=== PATIENT | male | born 1955 | race Caucasian/White ===

== ENCOUNTER 2017-05-24 21:16 | Observation (INO) | payer BC ==
--- NOTE | 2017-05-24 21:20 | ED ---
General Adult HPI - General Stated complaint: Chest Pain Time Seen by Provider: 05/24/17 21:19 Source: RN notes reviewed, old records reviewed - History of Present Illness Initial comments: This is a 61-year-old male ER for evaluation of chest pain. Patient with history of high blood pressure high cholesterol. Now no history of smoking is strongly family history. Patient coming here today for chest pain all day. Anterior heaviness. Patient was continued chest metastatic on arthroscopic congestion or family history. - Related Data Home Medications Medication Instructions Recorded Confirmed ALPRAZolam [Xanax] 0.5 mg PO TID PRN 05/24/17 05/24/17 Aspirin EC [Ecotrin Low Dose] 81 mg PO QAM 05/24/17 05/24/17 Ergocalciferol (Vitamin D2) 50,000 unit PO WE 05/24/17 05/24/17 [Vitamin D2] HYDROcodone/APAP 7.5-325MG [[place] 1 tab PO Q6HR PRN 05/24/17 05/24/17 7.5-325] Rosuvastatin Calcium 20 mg PO QAM 05/24/17 05/24/17 Allergies Allergy/AdvReac Type Severity Reaction Status Date / Time Penicillins Allergy Rash/Hives Verified 05/24/17 21:25 Review of Systems ROS Statement: Those systems with pertinent positive or pertinent negative responses have been documented in the HPI. ROS Other: All systems not noted in ROS Statement are negative. General Exam General appearance: alert, in no apparent distress Head exam: Present: atraumatic, normocephalic, normal inspection Eye exam: Present: normal appearance, PERRL, EOMI. Absent: scleral icterus, conjunctival injection, periorbital swelling ENT exam: Present: normal exam, mucous membranes moist Neck exam: Present: normal inspection. Absent: tenderness, meningismus, lymphadenopathy Respiratory exam: Present: normal lung sounds bilaterally. Absent: respiratory distress, wheezes, rales, rhonchi, stridor Cardiovascular Exam: Present: regular rate, normal rhythm, normal heart sounds. Absent: systolic murmur, diastolic murmur, rubs, gallop, clicks GI/Abdominal exam: Present: soft, normal bowel sounds. Absent: distended, tenderness, guarding, rebound, rigid Extremities exam: Present: normal inspection, full ROM, normal capillary refill. Absent: tenderness, pedal edema, joint swelling, calf tenderness Back exam: Present: normal inspection Neurological exam: Present: alert, oriented X3, CN II-XII intact Psychiatric exam: Present: normal affect, normal mood Skin exam: Present: warm, dry, intact, normal color. Absent: rash Course Vital Signs 05/24/17 05/24/17 21:19 22:25 Temperature 98.1 F Pulse Rate 75 78 Respiratory 18 18 Rate Blood Pressure 146/93 118/89 O2 Sat by Pulse 97 98 Oximetry - Reevaluation(s) Reevaluation #1: 05/24/17 23:01 Patient remains with chest pain EKG Findings - EKG Comments: EKG Findings:: EKG shows normal sinus rhythm is 33, VT 150, QRS 90, QTC 407 Medical Decision Making - Medical Decision Making 61 [facility] ER for evaluation of chest pain, history of 5 blood pressure cholesterol, anterior chest pain and heaviness in the left lower distress. All day. No prior history of heart disease with strong family history, patient will be admitted for cardiac observation - Lab Data Result diagrams: 05/24/17 21:25 05/24/17 21:25 Lab Results 05/24/17 05/24/17 05/24/17 Range/Units 21:25 21:25 21:25 WBC 11.5 H (3.8-10.6) k/uL RBC 5.09 (4.30-5.90) m/uL Hgb 15.2 (13.0-17.5) gm/dL Hct 44.2 (39.0-53.0) % MCV 86.7 (80.0-100.0) fL MCH 29.8 (25.0-35.0) pg MCHC 34.4 (31.0-37.0) g/dL RDW 13.5 (11.5-15.5) % Plt Count 224 (150-450) k/uL Neutrophils % 79 % Lymphocytes % 12 % Monocytes % 6 % Eosinophils % 1 % Basophils % 0 % Neutrophils # 9.1 H (1.3-7.7) k/uL Lymphocytes # 1.4 (1.0-4.8) k/uL Monocytes # 0.7 (0-1.0) k/uL Eosinophils # 0.1 (0-0.7) k/uL Basophils # 0.0 (0-0.2) k/uL PT (9.0-12.0) sec INR (<1.1) APTT (22.0-30.0) sec Sodium 140 (137-145) mmol/L Potassium 4.0 (3.5-5.1) mmol/L Chloride 102 (98-107) mmol/L Carbon Dioxide 26 (22-30) mmol/L Anion Gap 12 mmol/L BUN 24 H (9-20) mg/dL Creatinine 1.08 (0.66-1.25) mg/dL Est GFR (MDRD) Af Amer >60 (>60 ml/min/1.73 sqM) Est GFR (MDRD) Non-Af >60 (>60 ml/min/1.73 sqM) Glucose 105 H (74-99) mg/dL Calcium 9.8 (8.4-10.2) mg/dL Magnesium 2.1 (1.6-2.3) mg/dL Total Bilirubin 0.9 (0.2-1.3) mg/dL AST 30 (17-59) U/L ALT 44 (21-72) U/L Alkaline Phosphatase 67 (38-126) U/L Total Creatine Kinase 216 H (55-170) U/L CK-MB (CK-2) 2.9 H* (0.0-2.4) ng/mL CK-MB (CK-2) Rel Index 1.3 Troponin I <0.012 (0.000-0.034) ng/mL Total Protein 8.0 (6.3-8.2) g/dL Albumin 4.9 (3.5-5.0) g/dL 05/24/17 Range/Units 21:25 WBC (3.8-10.6) k/uL RBC (4.30-5.90) m/uL Hgb (13.0-17.5) gm/dL Hct (39.0-53.0) % MCV (80.0-100.0) fL MCH (25.0-35.0) pg MCHC (31.0-37.0) g/dL RDW (11.5-15.5) % Plt Count (150-450) k/uL Neutrophils % % Lymphocytes % % Monocytes % % Eosinophils % % Basophils % % Neutrophils # (1.3-7.7) k/uL Lymphocytes # (1.0-4.8) k/uL Monocytes # (0-1.0) k/uL Eosinophils # (0-0.7) k/uL Basophils # (0-0.2) k/uL PT 11.1 (9.0-12.0) sec INR 1.1 (<1.1) APTT 23.9 (22.0-30.0) sec Sodium (137-145) mmol/L Potassium (3.5-5.1) mmol/L Chloride (98-107) mmol/L Carbon Dioxide (22-30) mmol/L Anion Gap mmol/L BUN (9-20) mg/dL Creatinine (0.66-1.25) mg/dL Est GFR (MDRD) Af Amer (>60 ml/min/1.73 sqM) Est GFR (MDRD) Non-Af (>60 ml/min/1.73 sqM) Glucose (74-99) mg/dL Calcium (8.4-10.2) mg/dL Magnesium (1.6-2.3) mg/dL Total Bilirubin (0.2-1.3) mg/dL AST (17-59) U/L ALT (21-72) U/L Alkaline Phosphatase (38-126) U/L Total Creatine Kinase (55-170) U/L CK-MB (CK-2) (0.0-2.4) ng/mL CK-MB (CK-2) Rel Index Troponin I (0.000-0.034) ng/mL Total Protein (6.3-8.2) g/dL Albumin (3.5-5.0) g/dL Critical Care Time Critical Care Time: Yes Total Critical Care Time: 31 Disposition Clinical Impression: Chest pain Disposition: ADMITTED IP TO THIS [facility] Condition: Undetermined Instructions: Chest Pain (ED) Referrals: Zoila Montgomery MD [Primary Care Provider] - 1-2 days
[2017-05-24 21:42] LABS: Basophils % (A) 0 %; CH 30.1; CHCM 34.8; Eosinophils # (A) 0.1 k/uL (0-0.7); Eosinophils % (A) 1 %; HCT 44.2 % (39.0-53.0); HDW 2.41; HGB 15.2 gm/dL (13.0-17.5); Luc # (Auto) 0.18; Luc % (Auto) 2; Lymphocytes # (A) 1.4 k/uL (1.0-4.8); Lymphocytes % (A) 12 %; MCH 29.8 pg (25.0-35.0); MCHC 34.4 g/dL (31.0-37.0); MCV 86.7 fL (80.0-100.0); Monocytes # (A) 0.7 k/uL (0-1.0); Monocytes % (A) 6 %; Neutrophils # (A) 9.1 k/uL (1.3-7.7); Neutrophils % (A) 79 %; RBC 5.09 m/uL (4.30-5.90); RDW 13.5 % (11.5-15.5); WBC 11.5 k/uL (3.8-10.6); WBC (Perox) 10.77
[2017-05-24 21:51] LABS: INR 1.1 (<1.1); Partial Thromboplastin Time 23.9 sec (22.0-30.0); Prothrombin Time 11.1 sec (9.0-12.0)
[2017-05-24 21:52] LABS: ALT 44 U/L (21-72); AST 30 U/L (17-59); Alkaline Phosphatase 67 U/L (38-126); Anion Gap 12 mmol/L; Blood Urea Nitrogen 24 mg/dL (9-20); Calcium 9.8 mg/dL (8.4-10.2); Carbon Dioxide 26 mmol/L (22-30); Chloride 102 mmol/L (98-107); Glucose 105 mg/dL (74-99); Magnesium 2.1 mg/dL (1.6-2.3); Non-African American GFR(MDRD) >60 (>60 ml/min/1.73 sqM); Sodium 140 mmol/L (137-145); Total Bilirubin 0.9 mg/dL (0.2-1.3)
[2017-05-24 22:03] LABS: Creatine Kinase 216 U/L (55-170)
[2017-05-24 22:16] LABS: Troponin I <0.012 ng/mL (0.000-0.034)
[2017-05-24 22:18] LABS: Creatine Kinase MB 2.9 ng/mL (0.0-2.4)
--- NOTE | 2017-05-24 22:28 | XR ---
EXAMINATION TYPE: XR chest 2V DATE OF EXAM: 05/24/2017 COMPARISON: August 29, 2010 HISTORY: Pain TECHNIQUE: Frontal and lateral views of the chest are obtained. FINDINGS: There is no focal air space opacity, pleural effusion, or pneumothorax seen. The cardiac silhouette size is within normal limits. The osseous structures are intact. IMPRESSION: No acute cardiopulmonary process.
[2017-05-24] MEDS ORDERED: NITROGLYCERIN SL TABS 0.4 MG TAB SUBLINGUAL PRN (22:56)
[2017-05-24] MEDS ORDERED: HEPARIN SODIUM,PORCINE 5,000 UNIT/ML 1 ML VIAL IV PRN (22:56)
[2017-05-24] MEDS ORDERED: HEPARIN SODIUM,PORCINE 5,000 UNIT/ML 1 ML VIAL IV ONE (22:56)
[2017-05-24] MEDS ORDERED: ASPIRIN 81 MG CHEW PO STA (22:56)
[2017-05-24] MEDS ORDERED: HEPARIN SODIUM,PORCINE/D5W PMX 25,000 UNIT in DEXTROSE/WATER 1 500ML.BAG IV SCH (23:00)
[2017-05-25 00:15] VITALS: BMI 32.1
[2017-05-25 04:43] LABS: Creatine Kinase 181 U/L (55-170)
[2017-05-25 04:56] LABS: Troponin I <0.012 ng/mL (0.000-0.034)
[2017-05-25 05:03] LABS: Creatine Kinase MB 2.6 ng/mL (0.0-2.4)
[2017-05-25 07:15] LABS: Cholesterol 176 mg/dL (<200); HDL Cholesterol 59 mg/dL (40-60); Triglycerides 127 mg/dL (<150)
[2017-05-25] MEDS: ATORVASTATIN 80 MG TAB PO SCH (09:00)
[2017-05-25] MEDS: ASPIRIN 325 MG TAB PO SCH (09:00)
[2017-05-25] MEDS ORDERED: SODIUM CHLORIDE 0.9% 1,000 ML in EMPTY BAG 1 BAG IV ONE (09:49)
[2017-05-25] MEDS ORDERED: ALPRAZolam 0.25 MG TAB PO PRN (09:49)
[2017-05-25] MEDS ORDERED: ALPRAZolam 0.5 MG TAB PO PRN ×2 (09:49→14:34)
--- NOTE | 2017-05-25 09:59 | P.CRDCN ---
History of Present Illness Reason for Consult (text): Chest pain History of present illness: Mr. Patrick is a 61-year-old gentleman who is seen for the evaluation of chest pain. This basis started having pain in the left anterior part of the chest yesterday. In was persistent and dull aching not associated with any nausea vomiting or sweating and persisted for several hours. And did not radiate to the arm neck or jaw and came to the emergency room and subsequently is admitted. Patient's EKGs and cardiac enzymes are normal. This patient does have a strong family history of coronary artery disease. Patient's father and one brother both had heart attacks in their early 50s. And has a history of for hyperlipidemia. Patient had a stress test done in June 2016 which was normal resumes physical activities are limited. Past Medical History Past Medical History: Hyperlipidemia History of Any Multi-Drug Resistant Organisms: None Reported Past Surgical History: Hernia Repair, Joint Replacement, Orthopedic Surgery Additional Past Surgical History / Comment(s): right ankle pending Smoking Status: Never smoker - Past Family History Mother Family Medical History: Dementia Father Family Medical History: Myocardial Infarction ([place]) Brother(s) Family Medical History: Myocardial Infarction ([place]) Additional Family Medical History / Comment(s): at 54 Medications and Allergies Home Medications Medication Instructions Recorded Confirmed Type ALPRAZolam [Xanax] 0.5 mg PO TID PRN 05/24/17 05/25/17 History Aspirin EC [Ecotrin Low Dose] 81 mg PO QAM 05/24/17 05/25/17 History Ergocalciferol (Vitamin D2) 50,000 unit PO WE 05/24/17 05/25/17 History [Vitamin D2] HYDROcodone/APAP 7.5-325MG [[place] 1 tab PO Q6HR PRN 05/24/17 05/25/17 History 7.5-325] Rosuvastatin Calcium 20 mg PO QAM 05/24/17 05/25/17 History Allergies Allergy/AdvReac Type Severity Reaction Status Date / Time Penicillins Allergy Rash/Hives Verified 05/25/17 00:06 Physical Exam Vitals: Vital Signs Temp Pulse Pulse Resp BP BP Pulse Ox 05/25/17 08:00 98.0 F 65 18 130/65 98 05/25/17 04:00 18 05/25/17 03:46 98.1 F 71 18 110/68 97 05/25/17 00:00 98.3 F 73 14 140/82 94 L 05/24/17 23:58 98.1 F 81 18 118/70 98 05/24/17 23:41 81 18 118/70 98 05/24/17 22:25 78 18 118/89 98 05/24/17 21:19 98.1 F 75 18 146/93 97 Intake and Output 05/24/17 05/25/17 05/25/17 22:59 06:59 14:59 Other: # Voids 1 Weight 104.326 kg 104.3 kg Patient's vital signs are reviewed. Head ENT negative. Neck is supple that is no increase in jugular venous pressure. No carotid bruit noted. Heart first and second heart sounds are normal. No evidence of any murmur Lungs clear to auscultation and percussion. Abdomen. Soft liver and spleen are not enlarged. Extremities peripheral pulses since are 2+ is no evidence of any leg edema. EKG shows normal sinus rhythm without any acute ischemic changes 2 sets of troponins are normal. Results 05/25/17 06:25 05/24/17 21:25 Cardiac Enzymes 05/24/17 05/24/17 05/25/17 Range/Units 21:25 21:25 03:49 AST 30 (17-59) U/L CK-MB (CK-2) 2.9 H* 2.6 H* (0.0-2.4) ng/mL Troponin I <0.012 <0.012 (0.000-0.034) ng/mL Coagulation 05/24/17 05/25/17 Range/Units 21:25 06:25 PT 11.1 (9.0-12.0) sec APTT 23.9 34.3 H (22.0-30.0) sec Lipids 05/25/17 Range/Units 06:25 Triglycerides 127 (<150) mg/dL Cholesterol 176 (<200) mg/dL HDL Cholesterol 59 (40-60) mg/dL CBC 05/24/17 05/25/17 Range/Units 21:25 06:25 WBC 11.5 H (3.8-10.6) k/uL RBC 5.09 (4.30-5.90) m/uL Hgb 15.2 (13.0-17.5) gm/dL Hct 44.2 (39.0-53.0) % Plt Count 224 205 (150-450) k/uL Comprehensive Metabolic Panel 05/24/17 Range/Units 21:25 Sodium 140 (137-145) mmol/L Potassium 4.0 (3.5-5.1) mmol/L Chloride 102 (98-107) mmol/L Carbon Dioxide 26 (22-30) mmol/L BUN 24 H (9-20) mg/dL Creatinine 1.08 (0.66-1.25) mg/dL Glucose 105 H (74-99) mg/dL Calcium 9.8 (8.4-10.2) mg/dL AST 30 (17-59) U/L ALT 44 (21-72) U/L Alkaline Phosphatase 67 (38-126) U/L Total Protein 8.0 (6.3-8.2) g/dL Albumin 4.9 (3.5-5.0) g/dL Current Medications Generic Name Dose Route Start Last Admin Trade Name Sergoq PRN Reason Stop Dose Admin Aspirin 325 mg 05/25/17 09:00 05/25/17 09:00 Aspirin PO 325 mg DAILY KRISTINA Administration Atorvastatin Calcium 80 mg 05/25/17 09:00 05/25/17 09:00 Lipitor PO 80 mg DAILY KRISTINA Administration Heparin Sodium (Porcine) 0 unit 05/24/17 22:56 Heparin IV Q6HR PRN Low PTT Protocol Heparin Sodium/Dextrose 25,000 500 mls @ 20.03 mls/hr 05/24/17 23:00 23:21 unit/ IV Solution IV 9.6 units/kg/hr .Q24H KRISTINA 20.03 mls/hr Protocol Administration 9.6 UNITS/KG/HR Nitroglycerin 0.4 mg 05/24/17 22:56 Nitrostat SUBLINGUAL Q5M PRN Chest Pain Intake and Output 05/24/17 05/25/17 05/25/17 22:59 06:59 14:59 Other: # Voids 1 Weight 104.326 kg 104.3 kg 05/25/17 06:25 05/24/17 21:25 EKG Interpretations (text) EKG shows normal sinus rhythm without any acute ischemic changes. Assessment and Plan Plan: This patient had a prolonged episode of chest pain suggestive of unstable angina syndrome. Patient has a very strong family history of coronary artery disease. In view of that the patient is advised cardiac catheterization for definitive diagnosis to rule out any underlying significant coronary artery disease. The procedure and the risks were fully explained to the patient. Is and wants to proceed with definite for definitive diagnosis.
[2017-05-25 11:22] LABS: Creatine Kinase 164 U/L (55-170)
[2017-05-25] MEDS ORDERED: MIDAZOLAM 2 MG/2 ML VIAL ONE (11:33)
[2017-05-25] MEDS ORDERED: LIDOCAINE 2% INJ 20 MG/ML (20 ML MDV) ONE (11:33)
[2017-05-25] MEDS ORDERED: fentaNYL (PF) 50 MCG/ML 2 ML AMP ONE (11:34)
[2017-05-25 11:36] LABS: Creatine Kinase MB 2.2 ng/mL (0.0-2.4); Troponin I <0.012 ng/mL (0.000-0.034)
[2017-05-25] MEDS ORDERED: MIDAZOLAM 2 MG/2 ML VIAL IV ONE (12:03)
[2017-05-25] MEDS ORDERED: fentaNYL (PF) 50 MCG/ML 2 ML AMP IV ONE (12:03)
[2017-05-25] MEDS ORDERED: LIDOCAINE 2% INJ 20 MG/ML SQ ONE (12:07)
[2017-05-25] MEDS ORDERED: SODIUM CHLORIDE 0.9% 1,000 ML IV ONE (12:30)
[2017-05-25] MEDS ORDERED: IOHEXOL 350 MG/ML 125ML BOTTLE INJ ONE (13:39)
[2017-05-25] MEDS ORDERED: RX INFO: IV CONTRAST WAS GIVEN 1 EACH MISC MISCELLANE PRN (14:11)
--- NOTE | 2017-05-25 15:21 | P.HPIM ---
History of Present Illness H&P Date: 05/25/17 Chief Complaint: chest pain This is a 59-year-old male one of my patient with a previous medical history significant for hyperlipidemia, vitamin D deficiency, anxiety disorder, diverticulosis, osteoarthritis follow-up with me on a regular basis ended up going for a recent right total knee arthroplasty that was done successfully at [facility] and he developed to have significant arthritis in this ankle for which she has been getting some steroid injection, patient developed to have a significant left-sided chest pain associated with the shortness breath, patient has been under a lot of stress recently patient was investigated prior to his surgical intervention by Lexiscan stress test about a year ago that was negative for stress-induced ischemia, patient presented to the ER with a prolonged chest pain associated with increased shortness of breath without any evidence of any nausea or radiation to the neck or back his EKG did not show any acute abnormalities his cardiac enzymes are negative however because of his presentation and because of significant premature coronary artery disease in his father as well as his brother he was admitted to the hospital for left heart catheterization. Review of Systems Constitutional: Reports chronic pain, Reports weight gain, Denies anorexia, Denies fever, Denies lethargy, Denies malaise, Denies weakness, Denies weight loss Eyes: denies blurred vision, denies bulging eye, denies decreased vision, denies diplopia Ears: deny: decreased hearing Ears, nose, mouth and throat: Denies dysphagia, Denies neck lump, Denies swelling in throat, Denies sore throat Cardiovascular: Reports chest pain, Reports decreased exercise tolerance, Denies high blood pressure, Denies palpitations, Denies phlebitis, Denies shortness of breath, Denies syncope Respiratory: Denies congestion, Denies cough, Denies cough with sputum, Denies home oxygen, Denies sleep apnea, Denies snoring, Denies wheezing Gastrointestinal: Denies abdominal pain, Denies bloating, Denies BRBPR, Denies excessive gas, Denies melena, Denies nausea, Denies vomiting Genitourinary: Reports nocturia, Denies dysuria, Denies polyuria Musculoskeletal: Reports as per HPI, Reports gait dysfunction, Reports morning stiffness, Reports myalgias Musculoskeletal: right: ankle pain, ankle stiffness, ankle swelling, bilateral: hand stiffness, knee pain, knee stiffness, absent: elbow pain, elbow stiffness, elbow swelling, foot pain, foot stiffness, foot swelling, hand pain, hand swelling, hip pain, hip stiffness, hip swelling, knee swelling, shoulder pain, shoulder stiffness, shoulder swelling, wrist pain, wrist stiffness, wrist swelling Integumentary: Denies pruritus, Denies rash Neurological: Denies numbness, Denies weakness Psychiatric: Denies anxiety, Denies depression Endocrine: Denies fatigue, Denies weight change Past Medical History Past Medical History: Hyperlipidemia, Osteoarthritis (OA) Additional Past Medical History / Comment(s): Hyperlipidemia, vitamin D deficiency, diverticulosis, osteophytes, anxiety disorder. History of Any Multi-Drug Resistant Organisms: None Reported Past Surgical History: Hernia Repair, Joint Replacement (Left total knee arthroplasty in 07/17/2016 at [facility], left knee in March 2008 and right knee arthroscopic surgery in April 2012, check her finger right ring finger 3.), Orthopedic Surgery Additional Past Surgical History / Comment(s): right ankle pending Smoking Status: Never smoker Past Alcohol Use History: Daily (Patient drinks couple of drinks on a daily basis.) Past Drug Use History: None Reported - Past Family History Mother Family Medical History: Dementia (Mother at age of 80 from dementia.) Father Family Medical History: Myocardial Infarction ([place]) (Father at age of 56 from myocardial infarction.) Brother(s) Family Medical History: Myocardial Infarction ([place]) (Patient had 2 brothers one of them at age of 54 from a cardiac infarction the other one had cancer at the age of 64, there is 2 other brothers alive and well no major medical problems.) Additional Family Medical History / Comment(s): at 54 Sister(s) Family Medical History: No Reported History (Patient has one sister with no major medical problems.) Medications and Allergies Home Medications Medication Instructions Recorded Confirmed Type ALPRAZolam [Xanax] 0.5 mg PO TID PRN 05/24/17 05/25/17 History Aspirin EC [Ecotrin Low Dose] 81 mg PO QAM 05/24/17 05/25/17 History Ergocalciferol (Vitamin D2) 50,000 unit PO WE 05/24/17 05/25/17 History [Vitamin D2] HYDROcodone/APAP 7.5-325MG [[place] 1 tab PO Q6HR PRN 05/24/17 05/25/17 History 7.5-325] Rosuvastatin Calcium 20 mg PO QAM 05/24/17 05/25/17 History Allergies Allergy/AdvReac Type Severity Reaction Status Date / Time Penicillins Allergy Rash/Hives Verified 05/25/17 00:06 Physical Exam Vitals: Vital Signs Temp Pulse Pulse Resp BP BP Pulse Ox 05/25/17 11:30 98.6 F 71 16 123/85 95 05/25/17 08:00 98.0 F 65 18 130/65 98 05/25/17 04:00 18 05/25/17 03:46 98.1 F 71 18 110/68 97 05/25/17 00:00 98.3 F 73 14 140/82 94 L 05/24/17 23:58 98.1 F 81 18 118/70 98 05/24/17 23:41 81 18 118/70 98 05/24/17 22:25 78 18 118/89 98 05/24/17 21:19 98.1 F 75 18 146/93 97 Intake and Output 05/24/17 05/25/17 05/25/17 22:59 06:59 14:59 Other: Voiding Method Toilet # Voids 1 Weight 104.326 kg 104.3 kg - Constitutional General appearance: average body habitus, no acute distress - EENT Eyes: anicteric sclerae, EOMI, PERRLA, no ptosis, no scleral icterus, normal appearance ENT: hearing grossly normal, NA/AT, normal oropharynx, no thrush Ears: bilateral: normal - Neck Neck: no lymphadenopathy, normal ROM, no rigidity, no stridor, no thyromegaly Carotids: bilateral: upstroke normal Thyroid: bilateral: normal size - Respiratory Respiratory: bilateral: diminished, negative: dullness, rales, rhonchi, wheezing , prolonged expiration, prolonged inspiration - Cardiovascular Rhythm: regular Heart sounds: normal: S1, S2 Abnormal Heart Sounds: no systolic murmur, no S3 Gallop, no S4 Gallop, no click - Gastrointestinal General gastrointestinal: normal bowel sounds, soft, no splenomegaly, no tenderness, no umbilical hernia, no ventral hernia - Integumentary Integumentary: normal, normal turgor - Neurologic Neurologic: CNII-XII intact - Musculoskeletal Musculoskeletal: strength equal bilaterally - Psychiatric Psychiatric: A&O x's 3, appropriate affect, intact judgment & insight Results CBC & Chem 7: 05/25/17 06:25 05/24/17 21:25 Labs: Abnormal Lab Results - Last 24 Hours (Table) 05/24/17 05/24/17 05/24/17 Range/Units 21:25 21:25 21:25 WBC 11.5 H (3.8-10.6) k/uL Neutrophils # 9.1 H (1.3-7.7) k/uL APTT (22.0-30.0) sec BUN 24 H (9-20) mg/dL Glucose 105 H (74-99) mg/dL Total Creatine Kinase 216 H (55-170) U/L CK-MB (CK-2) 2.9 H* (0.0-2.4) ng/mL 05/25/17 05/25/17 Range/Units 03:49 06:25 WBC (3.8-10.6) k/uL Neutrophils # (1.3-7.7) k/uL APTT 34.3 H (22.0-30.0) sec BUN (9-20) mg/dL Glucose (74-99) mg/dL Total Creatine Kinase 181 H (55-170) U/L CK-MB (CK-2) 2.6 H* (0.0-2.4) ng/mL Thrombosis Risk Factor Assmnt - DVT/VTE Prophylaxis DVT/VTE Prophylaxis: Mechanical Prophylaxis ordered - Choose All That Apply Each Risk Factor Represents 2 Points: Age 61-74 years Thrombosis Risk Factor Assessment Total Risk Factor Score: 2 Thrombosis Risk Factor Assessment Level: Low Risk Assessment and Plan Plan: Assessment and plan: 1. Chest pain noncardiac cc be related to a lot of anxiety for the last few months, patient however does have a significant family history of premature coronary artery disease, however he underwent Lexiscan stress test as an outpatient about a year ago that was negative for stress-induced ischemia over the last because of the presentation patient will be admitted to the hospital he would be seen by cardiology and he will under go left heart catheterization for further evaluation of his coronary anatomy. 2. Hyperlipidemia. Continue Crestor 20 mg orally once every day. 3. Osteoarthritis with chronic pain syndrome. Continue current pain management with hydrocodone. 4. Anxiety disorder. Continue Xanax. 5. DVT prophylaxis. Early ambulation. 6. Patient is full code. 7. Vitamin D deficiency. Continue Drisdol 50,000 units once every week. 8. Diverticulosis. Colonoscopy is up-to-date. 9. Admitted as an observation. 10. Home tomorrow morning.
[2017-05-25] MEDS: SODIUM CHLORIDE 0.9% 1,000 ML IV SCH (15:54)
--- NOTE | 2017-05-25 18:05 | ECHOF ---
Referral Reason:CHEST PAIN MEASUREMENTS -------- HEIGHT: 180.3 cm WEIGHT: 103.9 kg BP: 134/74 IVSd: 1.3 cm (0.6 - 1.1) LVIDd: 4.2 cm (3.9 - 5.3) LVPWd: 1.3 cm (0.6 - 1.1) IVSs: 1.7 cm LVIDs: 2.7 cm LVPWs: 1.7 cm LAESV Index (A-L): 16.72 ml/m Ao Diam: 4.0 cm (2.0 - 3.7) AV Cusp: 2.0 cm (1.5 - 2.6) LA Diam: 3.2 cm (2.7 - 3.8) MV E John: 0.66 m/s MV DecT: 314 ms MV A John: 0.63 m/s MV E/A Ratio: 1.05 FINDINGS -------- Sinus rhythm. This was a technically adequate study. There is mild concentric left ventricular hypertrophy. The right ventricle is normal in size and function. Normal LA size by volume 22+/-6 ml/m2. The right atrium is normal in size. Aortic valve is trileaflet and is mildly thickened. There is no evidence of aortic regurgitation. There is no evidence of aortic stenosis. Moderate mitral annular calcification present. There is trace to mild mitral regurgitation. Trace tricuspid regurgitation present. There is no evidence of pulmonary hypertension. The right ventricular systolic pressure, as measured by Doppler, is {RVSP}. The pulmonic valve was not well visualized. The aortic root size is normal. Normal inferior vena cava with normal inspiratory collapse consistent with estimated right atrial pressure of 5 mmHg. The pericardium is normal. There is no pericardial effusion. CONCLUSIONS -------- 1. Sinus rhythm. 2. The right ventricular systolic pressure, as measured by Doppler, is {RVSP}. 3. The aortic root size is normal. 4. There is no pericardial effusion. 5. This was a technically adequate study. 6. There is mild concentric left ventricular hypertrophy. 7. Normal LA size by volume 22+/-6 ml/m2. 8. Aortic valve is trileaflet and is mildly thickened. 9. Moderate mitral annular calcification present. 10. There is trace to mild mitral regurgitation. 11. Trace tricuspid regurgitation present. 12. There is no evidence of pulmonary hypertension. [employer]: Zoran Macias RDCS
[2017-05-25] MEDS: HYDROcodone/APAP 7.5-325MG 1 EACH TAB PO PRN (19:38)
[2017-05-25] MEDS ORDERED: MORPHINE SULFATE 2 MG/ML SYRINGE IVP PRN (20:23)
[2017-05-25 23:39] VITALS: RESP 16
[2017-05-26] MEDS: SODIUM CHLORIDE 0.9% 1,000 ML IV SCH (06:49)
[2017-05-26 07:34] LABS: Mean Platelet Volume 6.8
[2017-05-26 07:50] VITALS: BP 151/82; PULSE 71; TEMP 98.1
[2017-05-26] MEDS: ATORVASTATIN 80 MG TAB PO SCH (08:23)
[2017-05-26] MEDS: ASPIRIN 325 MG TAB PO SCH (08:23)
[2017-05-26] MEDS: HYDROcodone/APAP 7.5-325MG 1 EACH TAB PO PRN (08:27)
--- NOTE | 2017-05-26 09:06 | P.PN ---
Subjective Principal diagnosis: Chest pain This patient was admitted to the hospital with chest pain. Patient was evaluated by Dr. VC Hannon and subsequently had a cardiac catheterization. He was found to have mild plaquing circumflex ostial lesion. No other significant stenosis was noted. Patient was advised maximum medical therapy. Patient remained clinically stable. His groin area soft without any significant hematoma. Patient could be discharged home from [facility] standpoint. Follow-up with Dr. VC Hannon as an outpatient Objective - Vital Signs Vital signs: Vital Signs Temp 98.1 F 05/26/17 07:49 Pulse 71 05/26/17 07:49 Resp 16 05/26/17 07:49 BP 151/82 05/26/17 07:49 Pulse Ox 96 05/26/17 07:49 Intake & Output 05/25/17 05/26/17 05/26/17 18:59 06:59 18:59 Intake Total 300 Balance 300 Intake: IV 300 Other: Voiding Method Urinal Urinal # Voids 1 - Exam GENERAL EXAM: Patient is alert and oriented and doesn't appear to be in any acute distress HEENT: Normocephalic. Normal reaction of pupils, equal size, normal range of extraocular motion. No erythema or exudates in the throat. NECK: No masses, no nuchal rigidity. CHEST: No chest wall deformity. LUNGS: Equal air entry with no crackles or wheeze. HEART: S1 and S2 normal with no audible mumurs or gallops. Regular rhythm, femorals equal on both sides.. ABDOMEN: No hepatosplenomegaly, normal bowel sounds, no guarding or rigidity. SKIN: No rashes CENTRAL NERVOUS SYSTEM: No focal deficits. EXTREMITIES: No cyanosis, clubbing or edema. GROIN: No hematoma - Labs CBC & Chem 7: 05/26/17 07:00 05/24/17 21:25 Assessment and Plan (1) Mild coronary artery disease Status: Acute Plan: Patient will be discharged home from [facility] standpoint. Follow-up with Dr. VC Hannon in one week
--- NOTE | 2017-05-26 10:32 | P.DS ---
Providers Date of admission: 05/24/17 22:56 Expected date of discharge: 05/26/17 Attending physician: Zoila Montgomery Consults: 05/24/17 22:56 Consult Physician Urgent Consulting Provider: Matthew Bearden Consult Reason/Comments: cp Do you want consulting provider notified?: Yes [facility] Course: This is a 59-year-old male one of my patient with a previous medical history significant for hyperlipidemia, vitamin D deficiency, anxiety disorder, diverticulosis, osteoarthritis follow-up with me on a regular basis ended up going for a recent right total knee arthroplasty that was done successfully at [facility] and he developed to have significant arthritis in this ankle for which she has been getting some steroid injection, patient developed to have a significant left-sided chest pain associated with the shortness breath, patient has been under a lot of stress recently patient was investigated prior to his surgical intervention by Lexiscan stress test about a year ago that was negative for stress-induced ischemia, patient presented to the ER with a prolonged chest pain associated with increased shortness of breath without any evidence of any nausea or radiation to the neck or back his EKG did not show any acute abnormalities his cardiac enzymes are negative however because of his presentation and because of significant premature coronary artery disease in his father as well as his brother he was admitted to the hospital for left heart catheterization. 05/26: Patient underwent heart catheterization that showed mild plaquing in the circumflex ostial lesion with no significant stenosis. Echocardiogram shows mild concentric left ventricular hypertrophy, mild mitral regurgitation, no pulmonary hypertension. Patient is without chest pain, shortness of breath, lightheadedness or dizziness. He has been cleared for discharge by cardiology. Heart rate is running in the 70s. Blood pressure is stable. Patient will be discharged home today in stable condition. Discharge Diagnoses: 1. Chest pain noncardiac related to a lot of anxiety for the last few months 2. Hyperlipidemia. 3. Osteoarthritis with chronic pain syndrome. 4. Anxiety disorder, generalized. 5. Vitamin D deficiency. 6. Diverticulosis. Discharge plan: Home Impression and plan of care have been directed as dictated by the signing physician. Carmelina Sotelo nurse practitioner acting as scribe for signing physician. Patient Condition at Discharge: Good Plan - Discharge Summary New Discharge Prescriptions: Continue ALPRAZolam [Xanax] 0.5 mg PO TID PRN PRN Reason: Anxiety Rosuvastatin Calcium 20 mg PO QAM Ergocalciferol (Vitamin D2) [Vitamin D2] 50,000 unit PO WE HYDROcodone/APAP 7.5-325MG [[place] 7.5-325] 1 tab PO Q6HR PRN PRN Reason: Pain Aspirin EC [Ecotrin Low Dose] 81 mg PO QAM Discharge Medication List ALPRAZolam [Xanax] 0.5 mg PO TID PRN 05/24/17 [History] Aspirin EC [Ecotrin Low Dose] 81 mg PO QAM 05/24/17 [History] Ergocalciferol (Vitamin D2) [Vitamin D2] 50,000 unit PO WE 05/24/17 [History] HYDROcodone/APAP 7.5-325MG [[place] 7.5-325] 1 tab PO Q6HR PRN 05/24/17 [History] Rosuvastatin Calcium 20 mg PO QAM 05/24/17 [History] Follow up Appointment(s)/Referral(s): Zoila Montgomery MD [Primary Care Provider] - 1 Week Lori Hannon MD [STAFF PHYSICIAN] - 1 Week (Office will call patient.) Patient Instructions/Handouts: Chest Pain (ED)
== END 2017-05-26 12:15 | disposition home or self-care (01) ==
LOC: EC 21:16 → 3OBS 22:56
PROVIDERS: ADMIT Internal Medicine; ATTEND Internal Medicine
DX: R07.89 Other chest pain (principal); E78.5 Hyperlipidemia, unspecified; I10 Essential (primary) hypertension; M19.90 Unspecified osteoarthritis, unspecified site; M19.079 Primary osteoarthritis, unspecified ankle and foot; G89.4 Chronic pain syndrome; E55.9 Vitamin D deficiency, unspecified; I25.10 Atherosclerotic heart disease of native coronary artery without angina pectoris; K57.90 Diverticulosis of intestine, part unspecified, without perforation or abscess without bleeding; F41.1 Generalized anxiety disorder; E78.00 Pure hypercholesterolemia, unspecified; Z79.82 Long term (current) use of aspirin; Z79.899 Other long term (current) drug therapy; Z88.0 Allergy status to penicillin; Z82.49 Family history of ischemic heart disease and other diseases of the circulatory system
CPT/HCPCS: 96366; 96376; 96365; 99291; 36415; 93005; 93306; 93458; 80061; 80053; 82550 ×2; 82553 ×2; 83735; 84484 ×2; 85025; 85049 ×2; 85610; 85730 ×2; 71020; G0378 ×3; C1769 ×3; C1760; C1894 ×2; C1887 ×2; J2001; J2250; J1644 ×2; J3010; J2270; Q9967

== ENCOUNTER 2018-08-09 10:34 | Day surgery (SDC) | payer BC ==
[2018-08-07 11:54] VITALS: BMI 30.8
[~2018-08-09 10:34] MED LIST: HYDROmorphone 0.5 MG/0.5 ML SYRINGE IVP PRN; LACTATED RINGERS 1,000 ML IV SCH; LIDOCAINE 1% 20 ML VIAL (10MG/ML) FOR IV START INTRADERMA PRN
[2018-08-09 12:06] VITALS: RESP 16; TEMP 97.8
[2018-08-09] MEDS ORDERED: fentaNYL (PF) 50 MCG/ML 2 ML AMP ONE (12:32)
[2018-08-09] MEDS ORDERED: MIDAZOLAM 2 MG/2 ML VIAL ONE (12:32)
[2018-08-09] MEDS ORDERED: PROPOFOL 10 MG/ML 20 ML VIAL IV ONE (12:32)
--- NOTE | 2018-08-09 12:47 | P.PCN ---
Date of Procedure: 08/09/18 Procedure(s) Performed: BRIEF HISTORY: Patient is a 62-year-old pleasant male, scheduled for an elective colonoscopy as a part of as a part of screening for colorectal neoplasia. PROCEDURE PERFORMED: Colonoscopy with snare polypectomy. PREOPERATIVE DIAGNOSIS: Screening for colon cancer. IV sedation per Anesthesia. PROCEDURE: After informed consent was obtained, the patient, was brought into the endoscopy unit. IV sedation was administered by Anesthesia under continuous monitoring. Digital rectal examination was normal. Initially the Olympus CF- 160 flexible video colonoscope was then inserted in the rectum, gradually advanced into the cecum without any difficulty. Careful examination was performed as the scope was gradually being withdrawn. Ileocecal valve and the appendiceal orifice were visualized and appeared normal. Prep was excellent. Mucosa of the cecum, ascending colon, transverse colon, descending colon, appeared normal. In the sigmoid colon there was a 5 mm sessile polyp removed by snare polypectomy. Rest of the sigmoid colon, and rectum appeared normal. Scattered left sided diverticulosis seen. Retroflexion was performed in the rectum and no lesions were seen. The patient tolerated the procedure well. IMPRESSION: 5 mm sessile sigmoid colon polyp status post snare polypectomy Scattered left sided diverticulosis. RECOMMENDATIONS: Findings of this examination were discussed with the patient as well as his family. He was advised to follow with the biopsy results. If the biopsy shows a tubular adenoma, he can have a repeat colonoscopy in 5 years.
[2018-08-09 13:10] VITALS: BP 124/80; PULSE 62
== END 2018-08-09 13:25 | disposition home or self-care (01) ==
LOC: ORWHC2ENDO 10:34
PROVIDERS: ATTEND Internal Medicine Gastroenterology
DX: Z12.11 Encounter for screening for malignant neoplasm of colon (principal); K63.5 Polyp of colon; K57.30 Diverticulosis of large intestine without perforation or abscess without bleeding; E78.5 Hyperlipidemia, unspecified; F39 Unspecified mood [affective] disorder; Z79.1 Long term (current) use of non-steroidal anti-inflammatories (NSAID); Z79.899 Other long term (current) drug therapy; Z79.82 Long term (current) use of aspirin; Z79.891 Long term (current) use of opiate analgesic; Z88.0 Allergy status to penicillin
CPT/HCPCS: 88305; 45385; J2250; J3010; J2704

== ENCOUNTER → 2019-09-16 | Outpatient (CLI) | payer BC ==
--- NOTE | 2019-09-16 17:01 | XR ---
EXAMINATION TYPE: XR chest 2V DATE OF EXAM: 09/16/2019 COMPARISON: 05/24/2017 HISTORY: Cough TECHNIQUE: Frontal and lateral views of the chest are obtained. FINDINGS: Heart and mediastinum are within normal limits. Lungs are clear. Diaphragm is normal. Bony thorax is intact. There is minimal atheromatous change in the thoracic aorta. IMPRESSION: No active cardiopulmonary disease. No change.
== END | disposition home or self-care (01) ==
LOC: LABWHC1 15:56
PROVIDERS: ATTEND Internal Medicine
DX: R05 Cough (principal)
CPT/HCPCS: 36415; 71046

== ENCOUNTER → 2019-11-13 | Outpatient (CLI) | payer BC ==
[2019-11-13 15:31] LABS: Basophils % (A) 1 %; Eosinophils # (A) 0.5 k/uL (0-0.7); Eosinophils % (A) 9 %; HCT 45.5 % (39.0-53.0); HGB 14.6 gm/dL (13.0-17.5); Lymphocytes # (A) 1.6 k/uL (1.0-4.8); Lymphocytes % (A) 33 %; MCHC 32.1 g/dL (31.0-37.0); MCV 90.4 fL (80.0-100.0); Mean Platelet Volume 7.6; Monocytes # (A) 0.5 k/uL (0-1.0); Monocytes % (A) 10 %; Neutrophils # (A) 2.2 k/uL (1.3-7.7); Neutrophils % (A) 44 %; Platelet Count 192 k/uL (150-450); RBC 5.03 m/uL (4.30-5.90); RDW 13.1 % (11.5-15.5)
[2019-11-13 17:18] LABS: Total Eosinophil Count 465 #EOS/uL (150-300)
[2019-11-13 20:37] LABS: Cat Epith & Dander IgE 0.28 kU/L; Cockroach IgE 0.14 kU/L; Dog Dander IgE <0.10 kU/L
[2019-11-13 20:38] LABS: Alternaria alternata IgE 0.17 kU/L; Aspergillus fumagatus IgE 0.18 kU/L; Cladosporian herbarum IgE 0.17 kU/L; Maple (Box Elder) IgE 0.53 kU/L
[2019-11-13 20:39] LABS: Birch IgE 3.54 kU/L; Elm IgE 0.29 kU/L; Oak IgE 0.25 kU/L
[2019-11-13 20:40] LABS: Ragweed,Common IgE 5.42 kU/L
== END | disposition home or self-care (01) ==
LOC: LABWHC1 14:51
PROVIDERS: ATTEND Internal Medicine
DX: J45.50 Severe persistent asthma, uncomplicated (principal); R05 Cough
CPT/HCPCS: 36415; 82785; 85008; 85025; 86003

== ENCOUNTER → 2020-06-30 | Outpatient (CLI) | payer BC, MEDICARE ==
[2020-06-30 12:46] LABS: Basophils % (A) 0 %; Eosinophils % (A) 0 %; HCT 45.6 % (39.0-53.0); Lymphocytes # (A) 1.1 k/uL (1.0-4.8); Lymphocytes % (A) 14 %; MCHC 32.9 g/dL (31.0-37.0); Mean Platelet Volume 7.4; Monocytes # (A) 0.8 k/uL (0-1.0); Monocytes % (A) 9 %; Neutrophils # (A) 6.1 k/uL (1.3-7.7); Neutrophils % (A) 76 %; Platelet Count 207 k/uL (150-450); RBC 5.01 m/uL (4.30-5.90); RDW 13.3 % (11.5-15.5); WBC 8.1 k/uL (3.8-10.6)
[2020-06-30 19:50] LABS: African American GFR (CKD) 91.1 (60.0-200.0); Albumin 4.3 g/dL (3.80-4.90); Albumin/Globulin Ratio 1.72 (1.60-3.17); Anion Gap 9.5 mmol/L (4.00-12.00); Calcium 9.5 mg/dL (8.7-10.3); Carbon Dioxide 27.5 mmol/L (21.6-31.8); Chol/HDL Ratio 2.51; Globulin 2.5 g/dL (1.6-3.3); LDL Cholesterol,Calculated 72.2 mg/dL (0.0-131.0); Non-African American GFR(CKD) 78.6 (60.0-200.0); Potassium 4.8 mmol/L (3.5-5.5); Total Protein 6.8 g/dL (6.2-8.2); VLDL Calculation 22.8 mg/dL (5.00-40.00)
== END | disposition home or self-care (01) ==
LOC: LABWHC1 10:48
PROVIDERS: ATTEND Internal Medicine Interventional Cardiology
DX: Z00.00 Encounter for general adult medical examination without abnormal findings (principal); E78.2 Mixed hyperlipidemia; N40.0 Benign prostatic hyperplasia without lower urinary tract symptoms
CPT/HCPCS: 36415; 80053; 80061; 84153; 84443; 85025

== ENCOUNTER 2023-09-12 08:24 | Day surgery (SDC) | payer MEDICARE ==
[2023-09-07 09:12] VITALS: BMI 29.8
[~2023-09-12 08:24] MED LIST changes: -HYDROmorphone 0.5 MG/0.5 ML SYRINGE IVP PRN; -LIDOCAINE 1% 20 ML VIAL (10MG/ML) FOR IV START INTRADERMA PRN
[2023-09-12 08:51] VITALS: RESP 16; TEMP 97.8
[2023-09-12] MEDS ORDERED: LIDOCAINE 1% INJ 10MG/ML (20 ML MDV) ONE (09:12)
[2023-09-12] MEDS ORDERED: PROPOFOL 10 MG/ML 20 ML VIAL IV ONE (09:12)
--- NOTE | 2023-09-12 09:25 | P.PCN ---
Date of Procedure: 09/12/23 Procedure(s) Performed: Brief history: Patient is a pleasant 67-year-old white male scheduled for an elective upper endoscopy as well as colonoscopy as a part of evaluation of GERD and prior history of colon polyps. Last colonoscopy was 5 years ago. Procedure performed: Esophagogastroduodenoscopy with biopsy Colonoscopy Preoperative diagnosis: Long-standing history of GERD History colon polyps Anesthesia: MAC Procedure: After informed consent was obtained from the patient was brought into the endoscopy unit and IV sedation was administered by anesthesia under continuous monitoring. Initially upper endoscopy was done. The Olympus GF 160 video endoscope was inserted inserted into the mouth and esophagus intubated without any difficulty and was gradually advanced into the stomach and duodenum and carefully examined. The bulb and second part of the duodenum appeared normal. The scope was then withdrawn into the stomach adequately insufflated with air and upon careful examination the antrum had mild gastritis and biopsies were done from this area. Mucosa of the body, cardia and fundus appeared normal. The scope was then withdrawn into the esophagus. The GE junction was located at 40 cm to the incisors. It appeared regular with no erythema erosions or ulcerations. Rest of the esophagus appeared normal. Patient tolerated the procedure well. At this time the patient continued to remain sedation. Initial digital rectal examination was normal. Olympus CF 160 video colonoscope was then inserted into the rectum and gradually advanced to the cecum without any difficulty. Careful examination was performed as the scope was gradually being withdrawn. The prep was excellent. The cecum, ascending colon, transverse colon, descending colon, sigmoid colon and rectum appeared normal. scattered left sided diverticulosis. Retroflexion was performed in the rectum and no lesions were noted. Patient tolerated the procedure well. Impression: 1. Upper endoscopy revealed mild antral gastritis but no evidence of esophagitis or Renteria's esophagus 2. Colonoscopy revealed scattered left sided diverticulosis but no evidence of colorectal neoplasia Recommendations: Findings of this examination were discussed with the patient as well a family. He was advised to be a high-fiber diet and take fiber supplements a regular basis. Continue with omeprazole 20 mg daily and follow antireflux measures. Recommend repeat screening colonoscopy in 10 years.
[2023-09-12 09:50] VITALS: BP 106/67; PULSE 70
== END 2023-09-12 10:13 | disposition home or self-care (01) ==
LOC: ORWHC2ENDO 08:24
PROVIDERS: ATTEND Internal Medicine Gastroenterology
DX: Z12.11 Encounter for screening for malignant neoplasm of colon (principal); K29.50 Unspecified chronic gastritis without bleeding; K21.00 Gastro-esophageal reflux disease with esophagitis, without bleeding; K57.30 Diverticulosis of large intestine without perforation or abscess without bleeding; E78.5 Hyperlipidemia, unspecified; G47.33 Obstructive sleep apnea (adult) (pediatric); J45.909 Unspecified asthma, uncomplicated; M81.0 Age-related osteoporosis without current pathological fracture; F41.9 Anxiety disorder, unspecified; F12.90 Cannabis use, unspecified, uncomplicated; Z86.010 Personal history of colon polyps; Z79.51 Long term (current) use of inhaled steroids; Z79.82 Long term (current) use of aspirin; Z79.02 Long term (current) use of antithrombotics/antiplatelets; Z79.899 Other long term (current) drug therapy
CPT/HCPCS: 88305; 45378; 43239; J2001; J2704